=== PATIENT | female | born 1950 | race Caucasian/White ===

== ENCOUNTER 2017-09-20 12:12 | Emergency (ER) | payer MEDICARE, OTHER, SELFPAY ==
[2017-09-20 12:19] VITALS: BP 136/98; PULSE 96; RESP 18; TEMP 36.9; O2SAT 97
--- NOTE | 2017-09-20 13:03 | ED_ITS ---
HPI - Dizziness General Chief Complaint: Dizziness Stated Complaint: VERTIGO WHEN STANDING AND BENDING OVER Time Seen by Provider: 09/20/17 12:29 Source: patient Mode of arrival: ambulatory Limitations: no limitations History of Present Illness HPI Narrative: 67-year-old female here for evaluation of lightheadedness and occasional vertigo and sinus congestion and ear fullness. Patient states that this has been going on for the past 3 or 4 days. She has been on Rhinocort and Apurva D. She also uses a nasal wash. She states that she feels like her sinuses are full in her ears are full. She states that she has episodes especially with change in position where she becomes lightheaded. She does state that there are times where she feels like the room was spinning and times where she does not. She states that earlier today she bent over to get something out of a covered under her stove when she felt like she almost fell over. Denies any chest pain or palpitations or shortness of breath prior to the events. Related Data Previous Rx's Medication Instructions Recorded azithromycin See Label Instructions .ROUTE 09/20/17 .COMPLEX #6 tab meclizine 25 mg PO BID-TID PRN #10 tab 09/20/17 Allergies Allergy/AdvReac Type Severity Reaction Status Date / Time Sulfa (Sulfonamide Allergy Verified 09/20/17 12:18 Antibiotics) Review of Systems Constitutional Denies chills, Denies fatigue, Denies fever(s), Denies frequent falls, Denies headache(s), Denies lethargy and Denies malaise Eyes Denies blurry vision, Denies diplopia, Denies loss of vision and Denies photophobia ENT Ears, Nose, Mouth, and Throat: Denies dental pain, Reports vertigo, Reports dizziness, Denies otalgia, Denies headache(s), Denies mouth pain, Reports nasal congestion, Denies nasal discharge, Denies nasal obstruction, Denies neck pain, Denies nose pain, Denies disequilibrium, Denies tinnitus, Reports sinus pressure , Denies sore throat, Denies throat swelling and Denies tongue swelling Cardiovascular Denies chest pain, Denies syncope, Denies palpitations and Denies dyspnea Respiratory Denies cough and Denies dyspnea Gastrointestinal Gastrointestinal: Denies constipation, Denies diarrhea, Denies nausea and Denies vomiting Musculoskeletal Denies myalgias, Denies arthralgias, Denies neck pain and Denies tingling Integumentary/Breasts Denies lesions and Denies rash Neurologic Denies confusion, Reports vertigo, Reports dizziness, Denies syncope, Denies frequent falls, Denies headache(s), Denies loss of vision, Denies convulsions, Denies tingling and Denies disequilibrium Psychiatric Denies anxiety, Denies confusion and Denies depression Endocrine Denies fatigue and Denies palpitations Hematologic/Lymphatic Denies easy bleeding and Denies easy bruising Allergic/Immunologic Denies throat swelling and Denies tongue swelling [facility] Social History Smoking Status: Never smoker Exam Initial Vital Signs Initial Vital Signs: Vital Signs Temperature 98.4 F 09/20/17 12:19 Pulse Rate 96 H 09/20/17 12:19 Respiratory Rate 18 09/20/17 12:19 Blood Pressure 136/98 H 09/20/17 12:19 Pulse Oximetry 97 09/20/17 12:19 Const General: cooperative, healthy appearing, comfortable, well developed and No acute distress HENMT Head: normocephalic and atraumatic Ears: TM's abnormal bilaterally (Fluid behind bilateral ears no signs of redness ) Eyes General: appearance normal, both eyes and all related structures Neck Lymphatic: No lymphedema and No lymphadenopathy Resp Effort & Inspection: normal respiratory effort Auscultation: clear to auscultation bilaterally Cardio Rate: regular rate Rhythm: regular rhythm Pulses: radial pulses present Skin Lesions: no lesions Rashes: no rashes Neuro General: alert, awake and oriented x3 Cranial Nerves: CN's II-XI intact bilaterally Cognition: normal cognition Speech: speech normal Motor: muscle tone normal throughout Sensory Exam: no sensory deficits noted Extrem General: normal to inspection Psych Appearance: grossly normal and well kempt Course Orders Ordered: ED Orders 09/20/17 12:20 EKG-12 Lead Routine Vital Signs - 8 hr 09/20/17 12:19 Temperature 98.4 F Pulse Rate 96 H Respiratory Rate 18 Blood Pressure 136/98 H Pulse Oximetry 97 MDM - Dizziness ECG Data Attestation: I personally reviewed and interpreted this ECG as follows: Prior ECG tracings: not available for review Interpretation: Sinus rhythm Right bundle branch block Ventricular rate is 73 QRS 130 milliseconds Left anterior fascicular block No ST T wave changes MDM Narrative Medical decision making narrative: Patient with a history and physical exam consistent with sinus congestion. I feel that her symptoms today are caused by this. She has a normal neurologic exam. I was able to reproduce her symptoms by having her look to the right especially when she was lying down. She does have a vertigo component to it however she describes more of a lightheadedness. We did discuss the use of decongestants. Will send home with a prescription for antibiotics. She was told to hold this prescription for the next couple days. She was going to switch her decongestant to something else to see if this does not help her symptoms. Also sent home with a prescription for meclizine. She was given return precautions. She expressed understanding and agreement with plan. Discharge Plan Departure Patient Disposition: Home, Self-Care Clinical Impression: Sinusitis, Vertigo, Lightheadedness Instructions: Sinusitis, DI for Vertigo Activity Restrictions/Additional Instructions: Recommend that you take all of the medication as directed. Recommend that you try another decongestants such as Claritin or Zyrtec. Hold on the antibiotics for the next 24-48 hours. If her symptoms improve with the meclizine and changing the decongestant then do not fill these antibiotics. If symptoms worsen you can start that medication. Return to the emergency department for any new or worsening symptoms Prescriptions: New azithromycin 250 mg tablet See Label Instructions .ROUTE .COMPLEX Qty: 6 RF: 0 meclizine 25 mg tablet 25 mg PO BID-TID PRN (Reason: motion sickness) Qty: 10 RF: 0
[2017-09-20 13:18] VITALS: BP 112/80; PULSE 72; RESP 18; O2SAT 97
== END 2017-09-20 13:41 | disposition home or self-care (01) ==
PROVIDERS: Emergency Provider Emergency Medicine
DX: J32.9 Chronic sinusitis, unspecified (principal); R42 Dizziness and giddiness
CPT/HCPCS: 93005; 99283